=== PATIENT | male | born 1930 | race Hispanic/Latino ===

== ENCOUNTER 2017-03-04 09:02 | Outpatient (CLI) | payer MEDICARE ==
[2017-03-04 10:28] LABS: Blood Urea Nitrogen 19 mg/dL (9-20)
[2017-03-04] MEDS ORDERED: NACL ONE (10:29)
--- NOTE | 2017-03-05 13:35 | Cat Scan Report ---
CTA HEAD INDICATION: Cerebral aneurysm. COMPARISON: 02/24/2016. FINDINGS: CTA head performed following IV contrast. Axial, sagittal, coronal and 3-D reconstructions obtained. Stable 7 x 8 mm non-thrombosed aneurysm about the trifurcation of the right MCA within the right sylvian fissure again noted. Patent remainder levelock of [place]. Mild ICA atherosclerotic calcifications. Age-appropriate atrophy. Bilateral cataract surgery. Clear paranasal sinuses and mastoid air cells. Numerous radiopaque dental material create streak artifact, limiting exam. 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 Thank you for the opportunity to participate in this patient's care.
== END 2017-03-04 09:03 | disposition home or self-care (01) ==
LOC: CT 09:02
PROVIDERS: ATTEND Psychiatry & Neurology Neurology
DX: I67.1 Cerebral aneurysm, nonruptured (principal); Z98.41 Cataract extraction status, right eye; Z98.42 Cataract extraction status, left eye
CPT/HCPCS: 36415; 70496; 82565; 84520; Q9967

== ENCOUNTER 2017-03-24 12:11 | Emergency (ER) | payer MEDICARE ==
--- NOTE | 2017-03-24 14:27 | Cat Scan Report ---
CT HEAD WITHOUT CONTRAST: HISTORY: Head injury, fall. TECHNIQUE: Sequential CT images without contrast. FINDINGS: Images obtained show bilateral prominence of the sulci and ventricles. There are no abnormal intra- or extra-axial blood or fluid collections. There are no focal masses or evidence of mass effect. The villasenor white matter differentiation appears within normal limits. Regions of periventricular decreased attenuation are consistent with microangiopathic ischemic disease. The posterior fossa structures including the fourth ventricle, cerebellum, and brainstem appear normal. Approximate 8mm right MCA aneurysm is again noted and grossly unchanged since the CTA dated 03/04/17. IMPRESSION: Evidence of atrophy and microangiopathic ischemic disease. No acute intracranial process noted.
--- NOTE | 2017-03-24 14:32 | Emergency Department Report ---
ED General Adult HPI - General Chief complaint: Fall Stated complaint: HEAD INJURY Time Seen by Provider: 03/24/17 14:23 Source: patient, family Mode of arrival: Stretcher Limitations: Other - History of Present Illness Initial comments: Patient states that he was outside doing lawn work. He came into the house and tripped on the stairs. He was feeling weak he stated. He stated he felt like he almost passed out but never lost consciousness. He states that he fell on steps and cut his head on some sort of ornamental metal rail. He did not lose consciousness. He denies any neck pain back pain or other supplemental injury. He states that he no longer feels weak or dizzy. He is already stating that he is well enough to go home. states that he has had many falls in the past. He said no recent hospitalizations. He has no history of seizure. He has a history of cerebral aneurysm and had a CAT scan last month. He does not complain of any headache other than the soreness associated with his wound. He has an electronic pacemaker. -: Gradual Location: head Severity scale (0 -10): 0 - Related Data Home Medications Medication Instructions Recorded Confirmed Last Taken Aspirin [Ecotrin] 81 mg PO QDAY 09/19/13 03/17/14 03/17/14 Ibuprofen [Advil] 200 mg PO Q6H PRN 03/17/14 03/17/14 03/17/14 Isosorbide Mononitrate [Isosorbide 30 mg PO DAILY 03/17/14 03/17/14 03/17/14 Mononitrate ER] Metoprolol [Lopressor] 25 mg PO DAILY 03/17/14 03/17/14 03/17/14 Olmesartan (Nf) [Benicar (Nf)] 40 mg PO QDAY 03/17/14 03/17/14 03/17/14 Omeprazole [Prilosec] 20 mg PO QDAY 03/17/14 03/17/14 03/17/14 Simvastatin [Zocor] 20 mg PO QHS 03/17/14 03/17/14 03/17/14 Tiotropium [Spiriva] 18 mcg PO DAILY 03/17/14 03/17/14 03/17/14 Allergies Allergy/AdvReac Type Severity Reaction Status Date / Time No Known Allergies Allergy Unverified 03/17/14 18:31 ED Review of Systems ROS: Stated complaint: HEAD INJURY Other details as noted in HPI Constitutional: denies: chills, fever Eyes: denies: eye pain, eye discharge, vision change ENT: denies: ear pain, throat pain Respiratory: denies: cough, shortness of breath, wheezing Cardiovascular: denies: chest pain, palpitations Endocrine: no symptoms reported Gastrointestinal: denies: abdominal pain, nausea, diarrhea Genitourinary: denies: urgency, dysuria Musculoskeletal: denies: back pain, joint swelling, arthralgia Skin: denies: rash, lesions Neurological: denies: headache, weakness, paresthesias Psychiatric: denies: anxiety, depression Hematological/Lymphatic: denies: easy bleeding, easy bruising ED Past Medical Hx - Past Medical History Hx Hypertension: Yes Hx Heart Attack/AMI: No Hx Congestive Heart Failure: No Hx Diabetes: Yes Hx Deep Vein Thrombosis: No Hx Pulmonary Embolism: No Hx Liver Disease: No Hx Renal Disease: No Hx Sickle Cell Disease: No Hx Arthritis: No Hx Seizures: No Hx Kidney Stones: No Hx Asthma: No Hx COPD: Yes Hx Tuberculosis: No Hx Dementia: No Hx HIV: No Additional medical history: Pacemaker, Cardiac angioplasty x 1. Hypercholesterolemia - Surgical History Hx Coronary Stent: Yes Hx Open Heart Surgery: No Hx Pacemaker: Yes Hx Cholecystectomy: No Hx Appendectomy: No Hx Breast Surgery: No Additional Surgical History: Back Surgery. - Social History Smoking Status: Current Some Day Smoker Substance Use Type: Alcohol - Medications Home Medications: Home Medications Medication Instructions Recorded Confirmed Last Taken Type Aspirin [Ecotrin] 81 mg PO QDAY 09/19/13 03/17/14 03/17/14 History Ibuprofen [Advil] 200 mg PO Q6H PRN 03/17/14 03/17/14 03/17/14 History Isosorbide Mononitrate [Isosorbide 30 mg PO DAILY 03/17/14 03/17/14 03/17/14 History Mononitrate ER] Metoprolol [Lopressor] 25 mg PO DAILY 03/17/14 03/17/14 03/17/14 History Olmesartan (Nf) [Benicar (Nf)] 40 mg PO QDAY 03/17/14 03/17/14 03/17/14 History Omeprazole [Prilosec] 20 mg PO QDAY 03/17/14 03/17/14 03/17/14 History Simvastatin [Zocor] 20 mg PO QHS 03/17/14 03/17/14 03/17/14 History Tiotropium [Spiriva] 18 mcg PO DAILY 03/17/14 03/17/14 03/17/14 History ED Physical Exam - General General appearance: alert, in no apparent distress - Head Head exam: Present: normocephalic, other (curvilinear laceration at least 10 cm of the vortex of the scalp. Slightly Irregular edges. No foreign body noted hematoma.) - Eye Eye exam: Present: normal appearance. Absent: scleral icterus - ENT ENT exam: Present: normal exam, mucous membranes moist - Neck Neck exam: Present: normal inspection. Absent: tenderness, meningismus - Respiratory Respiratory exam: Present: normal lung sounds bilaterally. Absent: respiratory distress - Cardiovascular Cardiovascular Exam: Present: regular rate, normal rhythm. Absent: systolic murmur, diastolic murmur, rubs, gallop - GI/Abdominal GI/Abdominal exam: Present: soft, normal bowel sounds. Absent: distended, tenderness, guarding, rebound, rigid - Rectal Rectal exam: Present: deferred - Extremities Exam Extremities exam: Present: normal inspection, full ROM, normal capillary refill. Absent: tenderness, pedal edema, joint swelling, calf tenderness - Back Exam Back exam: Present: normal inspection. Absent: CVA tenderness (R), CVA tenderness (L), muscle spasm, paraspinal tenderness, vertebral tenderness - Neurological Exam Neurological exam: Present: alert, oriented X3, CN II-XII intact. Absent: motor sensory deficit - Psychiatric Psychiatric exam: Present: normal affect, normal mood - Skin Skin exam: Present: warm, dry, intact, normal color. Absent: rash ED Course Vital Signs 03/24/17 03/24/17 03/24/17 13:26 13:28 13:30 Temperature 98.7 F 98.7 F Pulse Rate 70 70 Respiratory 12 12 Rate Blood Pressure 135/77 Blood Pressure 135/77 [Right] O2 Sat by Pulse 98 98 Oximetry 03/24/17 03/24/17 03/24/17 13:31 13:45 14:23 Temperature Pulse Rate Respiratory Rate Blood Pressure 135/77 135/77 141/87 Blood Pressure [Right] O2 Sat by Pulse 96 98 Oximetry 03/24/17 03/24/17 15:01 15:21 Temperature Pulse Rate Respiratory 14 Rate Blood Pressure 150/84 Blood Pressure [Right] O2 Sat by Pulse Oximetry - Reevaluation(s) Reevaluation #1: Patient was offered admission to the hospital. The risks and benefits were explained. He has full mental capacity. He is declined admission. His daughter was present when I explained the recommendation for admission. He does already have a pacemaker so this does mitigate his wrists due to a near syncopal episode. However, as I have told him admission is preferred. I recommended that he go to [facility] for a pacemaker interrogation tomorrow. 03/24/17 17:32 03/24/17 17:33 - Laceration /Wound Repair Head Wound Location: head Wound Length (cm): 10 Wound's Depth, Shape: superficial Wound Explored: clean Anesthesia: Lidocaine w/ Epi Volume Anesthetic (ccs): 6 Wound Debrided: minimal Wound Repaired With: sutures Suture Size/Type: 4:0, proline Number of Sutures: 11 Layer Closure?: No Sterile Dressing Applied?: No ED Medical Decision Making - Lab Data Result diagrams: 03/24/17 14:49 03/24/17 14:49 Laboratory Results - last 24 hr 03/24/17 03/24/17 03/24/17 14:49 14:49 14:49 WBC 7.9 RBC 4.77 Hgb 14.5 Hct 43.6 MCV 92 MCH 30 MCHC 33 RDW 13.6 Plt Count 171 Sodium 140 Potassium 4.0 Chloride 103.4 Carbon Dioxide 24 Anion Gap 17 BUN 19 Creatinine 0.8 Estimated GFR > 60 BUN/Creatinine Ratio 23.75 Glucose 91 Calcium 8.8 Troponin T < 0.010 - EKG Data -: EKG Interpreted by Me Rate: normal - EKG Data Interpretation: no acute changes 03/24/17 14:31 Atrial pacing ventricular conduction delay and no acute ischemic changes - Radiology Data Radiology results: report reviewed interpreted by me: Right MCA aneurysm no change from prior. No acute process. Critical care attestation.: If time is entered above; I have spent that time in minutes in the direct care of this critically ill patient, excluding procedure time. ED Disposition Clinical Impression: Syncope, near, Cerebral aneurysm without rupture Scalp laceration Qualifiers: Encounter type: initial encounter Qualified Code(s): S01.01XA - Laceration without foreign body of scalp, initial encounter Disposition: DC-01 TO HOME OR SELFCARE Is pt being admited?: No Does the pt Need Aspirin: No Condition: Stable Instructions: Syncope (ED), Laceration (ED), Near Syncope (ED) Additional Instructions: I would recommend that you see your marketing graphics specialist tomorrow for further care and evaluation. Follow-up with your neurosurgeon concerning her aneurysm. Return should you desire admission or further evaluation. Procedures should be cleansed daily with hydroperoxide gently. Suture removal in one week to 9 days. Referrals: PRIMARY CARE, [Primary Care Provider] - 3-5 Days [facility] [Provider Group] - 24 Hours Time of Disposition: 17:38
[2017-03-24] MEDS ORDERED: XYLOCAINE 1%/ EPI 1:100,000 INFILTRATI ONE (14:38)
[2017-03-24 14:58] LABS: Hematocrit 43.6 % (35.5-45.6); Hemoglobin 14.5 gm/dl (11.8-15.2); Mean Corpuscular HGB Conc 33 % (32-34); Mean Corpuscular Hemoglobin 30 pg (28-32); Mean Corpuscular Volume 92 fl (84-94); Platelet Count 171 K/mm3 (140-440); Red Blood Count 4.77 M/mm3 (3.65-5.03); Red Cell Distribution Width 13.6 % (13.2-15.2); White Blood Count 7.9 K/mm3 (4.5-11.0)
[2017-03-24 15:13] LABS: BUN/Creatinine Ratio 23.75; Blood Urea Nitrogen 19 mg/dL (9-20); Calcium 8.8 mg/dL (8.4-10.2); Carbon Dioxide 24 mmol/L (22-30); Glucose 91 mg/dL (75-100)
[2017-03-24 15:14] LABS: Anion Gap 17 mmol/L; Chloride 103.4 mmol/L (98-107); Sodium 140 mmol/L (137-145)
[2017-03-24 18:16] VITALS: BP 130/70
== END 2017-03-24 18:10 | disposition home or self-care (01) ==
LOC: ED 12:11
DX: R55 Syncope and collapse (principal); I67.1 Cerebral aneurysm, nonruptured; E11.9 Type 2 diabetes mellitus without complications; J44.9 Chronic obstructive pulmonary disease, unspecified; F17.200 Nicotine dependence, unspecified, uncomplicated; Z79.82 Long term (current) use of aspirin; W10.8XXA Fall (on) (from) other stairs and steps, initial encounter; Y93.89 Activity, other specified; Y92.89 Other specified places as the place of occurrence of the external cause; Y99.8 Other external cause status
CPT/HCPCS: 36415; 70450; 80048; 84484; 85027; 93005; 93010